=== PATIENT | male | born 2000 | race Caucasian/White ===

== ENCOUNTER 2021-01-29 14:25 | Emergency (ER) | payer OTHER, SELFPAY ==
--- NOTE | 2021-01-29 14:32 | ED.ABDPAIN ---
HPI - Abdominal Pain General Chief Complaint: Abdominal Pain Stated Complaint: groin pain Time Seen by Provider: 01/29/21 14:34 Source: patient and RN notes reviewed Mode of arrival: ambulatory Limitations: no limitations History of Present Illness HPI narrative: 20-year-old male presents with concern for right groin pain. Reports pain has been intermittent for 2 months. Reports he noticed a bulge in the right groin area. Reports occasionally the pain radiates to the right testicle. He denies testicular swelling, redness, current testicular pain. He denies abdominal pain, nausea, vomiting. Reports mild constipation, straining with bowel movements. MD elicited complaint: other (Groin pain) Related Data Home Medications Medication Instructions Recorded Confirmed No Home Medications 01/29/21 01/29/21 Allergies Allergy/AdvReac Type Severity Reaction Status Date / Time Penicillins Allergy Unknown rash Verified 08/20/16 14:25 Review of Systems Review of Systems: Narrative: CONSTITUTIONAL: Denies malaise, chills, sweats, or fever. CARDIOVASCULAR: Denies chest pain, palpitations, or edema. RESPIRATORY: Denies dyspnea. GASTROINTESTINAL: Denies abdominal pain, nausea, vomiting, diarrhea, bloody, or mucous stools. GENITOURINARY: Denies dysuria or hematuria. Reports right groin pain SKIN: Denies rash or itching. MUSCULOSKELETAL: Denies back pain, joint pain, or myalgia. All systems reviewed & are unremarkable except as noted in HPI and below PMFSH Family History Family History (Updated 08/20/16 @ 14:37 by DOCTOR UNKNOWN) Mother Hypertension Family history of elevated blood lipids Other Cerebrovascular accident Family history of cardiovascular disease Family history of malignant neoplasm Social History Social History Smoking status: Never smoker Alcohol intake: never Comments At time of signature, agree with nursing past medical, surgical, social and family history. There is no relevant family history pertinent to the presenting complaint Exam Narrative: Exam Narrative: GENERAL: Well-appearing, well-nourished, and in no acute distress. HEAD: Normocephalic, atraumatic. EYES: PERRLA, conjunctivae clear, and EOMI. ENT: Nares clear, turbinates pink, no rhinorrhea or epistaxis. Mucous membranes moist. Oropharynx without edema, erythema, or lesions. Tonsils not enlarged and without exudate. NECK: Supple. No lymphadenopathy CHEST: Speaks in full sentences. No respiratory distress. HEART: Regular rate and rhythm. ABDOMEN: Soft, flat, nondistended. No guarding, rebound tenderness, or rigid. No pulsatilla masses. Bowel sounds present in all four quadrants. No organomegaly. Negative Zavala?s sign. No periumbilical tenderness. No Supra public tenderness or distension. Good femoral pulses bilaterally. No hernia noted. No scars or surface trauma. SKIN: Warm, dry, no rash. NEURO: Alert and oriented x3. PSYCH: Normal mood and affect Course Course Emergency Course: Discussed limited diagnostic capability express care. Discussed transfer to ER for further evaluation, through shared decision making patient decided to follow-up with primary care doctor or general surgery if necessary for reevaluation of his groin pain and possible inguinal hernia. Patient understands reasons to go to the emergency room if symptoms worsen. Patient is aware of diagnosis, understands and agrees to treatment plan. Anticipatory guidance given. Patient agrees to follow-up as directed and is aware of reasons to seek care at the emergency department. Portions of this record may have been created with voice recognition software Vital Signs Vital signs: Reviewed. MDM - Abdominal Pain MDM Narrative Medical decision making narrative: No evidence of pancreatitis, AAA, cholecystitis, choledocholithiasis, cholangitis, mesenteric ischemia, small bowel obstruction, diverticulitis, colitis, appendicitis, or pelvic etiology such as testicular to
[2021-01-29 14:33] VITALS: BP 152/91; PULSE 69; RESP 16; TEMP 37.1; O2SAT 100
== END 2021-01-29 15:00 | disposition home or self-care (01) ==
PROVIDERS: Emergency Provider Nurse Practitioner; PCP Emergency Medicine
DX: R10.30 Lower abdominal pain, unspecified (principal)
CPT/HCPCS: 99211; G0463

== ENCOUNTER 2021-02-12 02:21 | Day surgery (SDC) | payer OTHER, SELFPAY ==
[2021-02-06 14:34] VITALS: BMI 23.6
--- NOTE | 2021-02-09 12:35 | P.PNAN_ITS ---
Anes - Initial Pre Proc Eval Procedure: Operation Date: 02/12/21 07:30 Proposed Procedures p Laparoscopic Right Inguinal Hernia Repair with Mesh - Justyn Malin MD Date/Time: 02/09/21 12:35 Surgeon: Justyn Malin MD Pre Op Diagnosis: right inguinal hernia Patient Data Age: 20 Gender: M Height: 1.8 m Weight: 77 kg Allergies Allergy/AdvReac Type Severity Reaction Status Date / Time Penicillins Allergy Unknown rash Verified 02/12/21 07:24 Home Medications Medication Instructions Recorded Confirmed Type multivitamin [Multi-Daily] 1 tablet PO DAILY 02/06/21 02/06/21 History Patient hx anesthesia problems: none Family hx anesthesia problems: none [facility] Past Medical History Medical History (Updated 02/09/21 @ 12:35 by Maicol Olivo MD) Depression Family History Family History Mother Hypertension Family history of elevated blood lipids Father H/O inguinal hernia repair Other Cerebrovascular accident Family history of cardiovascular disease Family history of malignant neoplasm Social History Social History Smoking status: Never smoker Alcohol intake: current Alcohol use details: social drinker Substance use: never Substance use type: does not use Living arrangements: alone Additional occupation/education comments: [employer] Gender identity (if verbalized by the patient): Male Sexual Orientation (if Verbalized by the Patient): Straight or Heterosexual Spiritual care concerns: No Anes - Eval Final PreProcedure Day of Procedure 02/09/21 12:35 Patient weight: normal Heart: regular rate and rhythm Lungs: clear to auscultation Airway: Mallampati scale class II Neurological: alert and oriented Last oral intake: >/= 8 hours ASA classification: II Emergent: no Anesthetic plan: proceed Anesthesia type and monitoring: general ETT and standard monitoring Informed Consent: The patient's anesthetic plan and its attendant risks and benefits were discussed with the patient/family/POA. Questions were solicited and answers provided to the satisfaction of the patient/family/POA.
[2021-02-12] VITALS (8 sets, daily range): BP systolic 110–146; BP diastolic 47–78; PULSE 59–85; RESP 13–18; TEMP 36.3–37.5; O2SAT 98–100
[2021-02-12] MEDS: LACTATED RINGERS 1,000 ML 30 ML IV CONT ×2 (06:50→09:15)
[2021-02-12] MEDS: ACETAMINOPHEN 500 MG TABLET 1000 MG PO (06:55)
[2021-02-12] MEDS: KETOROLAC 15 MG/ML VIAL (*BKC) IV PUSH (06:57)
--- NOTE | 2021-02-12 07:13 | WPDHPUPDATE1 ---
History and Physical Update Update Date/Time: 02/12/21 07:13 History and Physical has been reviewed, including an updated exam of the patient. There are NO changes in the patient's condition. Risks, benefits, and alternatives have been discussed and questions answered. Patient agrees to proceed with procedure.
[2021-02-12] MEDS: ceFAZolin 2 GM/D5W 50 ML 2 GM/50 ML BAG IVPB (07:30)
[2021-02-12] MEDS: BUPIVACAINE/EPINEPHRINE 0.5% 10 ML VIAL 30 ML INFILTRATE (08:09)
--- NOTE | 2021-02-12 09:03 | W.PM.PROC2 ---
Procedure Note - Detailed Date of Procedure 02/23/21 Pre-op Diagnosis right inguinal hernia Post-op Diagnosis other ( unilateral Right Direct inguinal hernia) Procedure Performed 1. laparoscopic totally extraperitoneal right inguinal hernia repair with mesh Surgeon Justyn Malin MD [employer] ,OR waiter/waitress first class Anesthesia general Indications bulging and pain on the right groin Description of Procedure After appropriate marking of the operative site prior to surgery, the patient was taken to the operating room. After induction of adequate general endotracheal anesthesia by [facility] staff, the patient was carefully prepped and draped in a sterile fashion. A time out was performed confirming the procedure and site of surgery on the right. Following this, local anesthetic was infiltrated into the umbilical area and a vertical incision was made just below the umbilicus. I carefully dissected down to the the anterior rectus sheath on the right and then made a 1 cm vertical slit in the fascia just off the midline. The rectus muscle was retracted to right and then just in front of the posterior rectus sheath, a dissecting balloon was passed onto the pubic bone. After placing slight pressure on the left groin area, this was insufflated with 40 pumps, while watching with the 0 degree 10mm laparoscope. It appeared that I was in the proper plane. Following this, the dissecting balloon was removed and replaced by a Espinal cannula with a circular 30 cc conforming balloon. Following this, the 0 degree laparoscope was used to carefully place two 5mm [employer] slim trocars, just to the left of midline. One suprapubic and other one usp between the umbilicus and the pubic bone. Tedious dissection then occurred in the preperitoneal space exposing the Fercho's ligament, the cord structures, the muscular tissue anteriorly, and the retroperitoneum. This was then able to be dissected back and we could visualize the posterior peritoneum. I then dissected up to the level of the umbilicus and it was ready for mesh placement. After carefully confirming all sites and that the mesh would cover the direct space, I carefully rolled the Right Large 3D Bard mesh and slid this through the 12 mm trocar at the umbilical level down into the preperitoneal space. This unfurled nicely and sat nicely against the right groin structures. It nicely covered all spaces and it went back nicely into the preperitoneal space along the anterior-superior iliac spine. I took a picture of it carefully, which showed that the mesh will cover the preperitoneal groin well, and had come down to the posterior border of the peritoneum. Once this was accomplished, I took the patient out of Trendelenburg position, rotated the patient back even, and then observed using a dissector through the higher 5 mm trocar to keep the mesh pushed down against the posterior abdominal wall retroperitoneally. The peritoneum was then allowed to fall on to the mesh and it held the mesh nicely in place. I then carefully removed each of the 5 mm trocars under direct vision and compressed the CO2 gas out of the preperitoneal space, deflating the 30 cc round balloon and removing the Marcela cannula. I was happy with the way the peritoneum laid back on the mesh. I felt this will give the patient a good preperitoneal repair. Following this an O Vicryl figure of eight suture was used to close the anterior rectus sheath on the right side of the umbilical incision and then local anesthetic was infiltrated into each of the incisions. Each 5mm site was closed with 4-0 undyed Monocryl and a running subcuticular closure of 4-0 undyed Monocryl was used on the skin of umbilicus. Surgical glue was used for dressing. Following this, the patient was taken to the recovery room in good condition. Implants Bard Large 3D Max preformed Polypropylene mesh Estimated Blood Loss 10 Drains No Packing No Pathology none se
== END 2021-02-12 11:20 | disposition home or self-care (01) ==
PROVIDERS: PCP Emergency Medicine; Visit Provider Surgery
PROC: (CPT 49650; principal; 2021-02-12 07:30)
DX: K40.90 Unilateral inguinal hernia, without obstruction or gangrene, not specified as recurrent (principal)
CPT/HCPCS: 49650; 36415; 86850; 86900; 86901; A9270; C1781; J0690; J1100; J1885; J2250; J2405; J2704; J2710; J3010; J7030; J7120